=== PATIENT | female | born 1965 | race Caucasian/White ===

== ENCOUNTER → 2017-08-31 | Outpatient (CLI) | payer OTHER, BC ==
--- NOTE | 2017-08-31 14:21 | CARD ---
APPROVED REPORT EXAM Tilt Table S1S2, lungs CTA Attending Nurse: Anel Fraser RN HISTORY The Patient is a 51 year-old female with a history of syncope x1 but has had lightheadedness for raheem ral years INDICATIONS syncope x 1 PROCEDURE After explaining the risks, benefits, and alternative options, informed consent was obtained from the patient. Base - lineRhythm: SinusHR: 93 bpmBP: 105/24vjFaI8 Sat: 95 % Flat12:52Rhythm: SinusHR: 74 bpmBP: 99/95jcAaJ5 Sat: 98 % Flat12:56Rhythm: SinusHR: 85 bpmBP: 95/02coMrE7 Sat: 93 % Flat13:01Rhythm: SinusHR: 84 bpmBP: 100/23plJuD1 Sat: 97 % 80' Tilt13:06Rhythm: Sinus TachycardiaHR: 105 bpmBP: 94/96luCjJ2 Sat: 98 % 80' Tilt13:10Rhythm: Sinus TachycardiaHR: 103 bpm Flat13:12Rhythm: SinusHR: 74 bpmBP: 68/76vwVvJ3 Sat: 99 % Flat13:15Rhythm: SinusHR: 78 bpmBP: 95/55ewHvX5 Sat: 99 % Flat13:16Rhythm: SinusHR: 79 bpmBP: 101/34dsKkS9 Sat: 97 % ghoqyyb35:33Rhythm: SinusHR: 74 bpmBP: 108/37usKrJ7 Sat: 95 % COMPLICATIONS pt became nauseated immediately after rising to the upright position. stated she felt like heart was having to pump real hard, and she just felt horrible. 1311 pt was very anxious and started to flail a nd yanking at bed straps. stated she had to lay down and get on her side. pt was laid down about 10 m inutes into upright portion of test. b/p dropped to 68/55 and HR did drop from 105 that she ran durin g upright postion back to 70's that she ran during initial rest period. Dr. Guzman here and talked with pt about ways to help maintain her b/p by keeping well hydrated with not just water but mineral type drinks and to increase her salt intake. CONCLUSION Significant orthostatic response with reproduction of symptoms. No definite evidence for neurocardiogenic syncope.
--- NOTE | 2017-09-11 16:43 | EKG ---
[facility] [address] [place] [address] Test Date: 2017-09-11 Test Time: 14:30:56 Pat Name: KLEBER MARCELINO Department: Room: Gender: F Silk Hanger: : 1965 Requested By: JACOB SERRANO Order Number: [id number] Reading MD: Interpretive Statements
== END | disposition home or self-care (01) ==
LOC: EKG 12:10
PROVIDERS: ATTEND Family Medicine
DX: R55 Syncope and collapse (principal); R42 Dizziness and giddiness
CPT/HCPCS: 93225; 93660

== ENCOUNTER → 2017-12-01 | Outpatient (CLI) | payer OTHER, BC | END | disposition home or self-care (01) | LOC: CT 11:13 | DX: S02.19XD Other fracture of base of skull, subsequent encounter for fracture with routine healing (principal); R51 Headache; X58.XXXD Exposure to other specified factors, subsequent encounter | CPT/HCPCS: 70450 ==